=== PATIENT | male | born 1995 | race American Indian/Alaskan Native ===

== ENCOUNTER 2021-09-04 13:47 | Emergency (ER) | payer OTHER | END 2021-09-04 20:31 | disposition left against medical advice (07) | LOC: ED 13:47 | DX: R07.89 Other chest pain (principal); R51.9 Headache, unspecified; Z53.21 Procedure and treatment not carried out due to patient leaving prior to being seen by health care provider ==

== ENCOUNTER 2021-09-04 20:31 | Emergency (ER) | payer OTHER ==
[2021-09-04 20:48] VITALS: BP 162/66
[2021-09-05] MEDS ORDERED: traMADol 50 MG TAB PO ONE (00:28)
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
--- NOTE | 2021-09-05 01:17 | XRay Report ---
XR chest routine 2V INDICATION / CLINICAL INFORMATION: chest wall pain. COMPARISON: None available. FINDINGS: SUPPORT DEVICES: None. HEART /PULMONARY VASCULATURE: No significant abnormality. LUNGS / PLEURA: No significant pulmonary or pleural abnormality. No pneumothorax. ADDITIONAL FINDINGS: No acute osseous findings. No acute displaced fracture. IMPRESSION: 1. No acute findings. Signer Name: [place] MD Signed: 09/05/2021 1:13 AM Workstation Name: [id number]
--- NOTE | 2021-09-05 17:54 | Electrocardiograph Report ---
[facility] Test Date: 2021-09-04 Test Time: 20:40:17 Pat Name: MILEY NINO Department: Room: Gender: M Bill Collector: PAOLA : 1995 Requested By: JEREMI WILCOX Order Number: [id number] Reading MD: Neelam Valenzuela Measurements Intervals [place] Rate: 75 P: 63 WI: 121 QRS: 92 QRSD: 98 T: 21 QT: 351 QTc: 393 Interpretive Statements Sinus rhythm Consider left ventricular perjury No previous ECG available for comparison Electronically Signed On 09-05-2021 17:54:00 EDT by Neelam Valenzuela
== END 2021-09-05 02:32 | disposition home or self-care (01) ==
LOC: ED 20:31
DX: R07.89 Other chest pain (principal); Z90.89 Acquired absence of other organs; V43.92XA Unspecified car occupant injured in collision with other type car in traffic accident, initial encounter; Y93.89 Activity, other specified; Y92.89 Other specified places as the place of occurrence of the external cause; Y99.8 Other external cause status
CPT/HCPCS: 71046; 93005; 99283